=== PATIENT | male | born 1975 | race Caucasian/White ===

== ENCOUNTER 2021-03-01 23:18 | Emergency (ER) | payer OTHER ==
[~2021-03-01] VITALS: Ht 170.2 cm; Wt 72.6 kg
[~2021-03-01 23:18] MED LIST: CIPRO500 MG PO; FLAGYL500 MG PO; LISINOPRIL10 MG PO; NOHOMEMEDICATIONS; POLYMYXIN B/TMP10 ML OP; PROCTOCREAM-HC30 G1 RC; VICODIN 5-5001 EACH PO
[2021-03-01] MEDS ORDERED: RAYOS5 MG PO (23:33)
[2021-03-01] MEDS ORDERED: GAMUNEX-C20 GM/200 IVPB (23:33)
[2021-03-01] MEDS ORDERED: LIPITOR10 MG PO (23:33)
[2021-03-02] MEDS ORDERED: PERCOCET 7.5-31 EAC1 PO (02:13)
[2021-03-02] MEDS ORDERED: PROAIR HFA8.5 GM INH (02:14)
[2021-03-02 02:22] VITALS: BP 142/86
[2021-03-02 02:29] LABS: URINE BILIRUBIN NEGATIVE (Negative); URINE BLOOD NEGATIVE (Negative); URINE CLARITY CLEAR; URINE COLOR DARK YELLOW; URINE GLUCOSE-RANDOM NEGATIVE (Negative); URINE KETONES NEGATIVE (Negative); URINE LEUKOCYTES-REFLEX NEGATIVE (Negative); URINE NITRITE-REFLEX NEGATIVE (Negative); URINE PROTEIN NEGATIVE (Negative); URINE SPECIFIC GRAVITY >= 1.030 (1.005-1.030)
== END 2021-03-02 02:23 | disposition home or self-care (01) ==
LOC: M.ERS 23:18
PROVIDERS: Emergency Medicine
DX: S29.9XXA Unspecified injury of thorax, initial encounter (principal); Z20.822 Contact with and (suspected) exposure to COVID-19; J06.9 Acute upper respiratory infection, unspecified; Z79.899 Other long term (current) drug therapy; Z88.5 Allergy status to narcotic agent; Z88.8 Allergy status to other drugs, medicaments and biological substances; Z88.6 Allergy status to analgesic agent; W50.0XXA Accidental hit or strike by another person, initial encounter; Y93.89 Activity, other specified; Y92.89 Other specified places as the place of occurrence of the external cause; Y99.8 Other external cause status